=== PATIENT | male | born 1940 | race Caucasian/White ===

== ENCOUNTER → 2017-05-12 | Outpatient (CLI) | payer MEDICARE, OTHER ==
[~2017-05-12] MED LIST: ASPI-496 PO; FINA5TAB4 PO; METF500T4 PO; MULT-658 PO
[2017-05-12 10:02] LABS: MICROSCOPIC AUTO
== END | disposition home or self-care (01) ==
LOC: STAR 08:54
PROVIDERS: ATTEND Urology
DX: N20.0 Calculus of kidney (principal)
CPT/HCPCS: 81001; 87077; 87086; 87186; 93005

== ENCOUNTER 2017-05-18 09:45 | Day surgery (SDC) | payer MEDICARE, OTHER ==
[~2017-05-18] VITALS: Ht 177.8 cm; Wt 75.0 kg
[2017-05-18] MEDS ORDERED: LACTATED RINGERS 1,000 ML IV SCH (10:01)
[2017-05-18] MEDS ORDERED: CEFAZOLIN 1,000 MG ONE (13:36)
[2017-05-18] MEDS ORDERED: DEXAMETHASONE 4 MG/ML, 1ML ONE (13:36)
[2017-05-18] MEDS ORDERED: ONDANSETRON 2MG/ML, 2ML ONE (13:36)
[2017-05-18] MEDS ORDERED: PROPOFOL 10 MG/ML, 20ML ONE (13:36)
[2017-05-18] MEDS ORDERED: morphine SULFATE 10 MG/ML, 1ML IV PRN (16:00)
[2017-05-18] MEDS ORDERED: FENTANYL PF 100 MCG/2ML IV PRN (16:00)
[2017-05-18] MEDS ORDERED: HYDROmorphone 1 MG/ML, 1ML IV PRN (16:00)
[2017-05-18] MEDS ORDERED: OXYcodone 5 MG/5 ML ORAL.SOL UDC PO PRN (16:00)
[2017-05-18] MEDS ORDERED: ACETAMINOPHEN 325 MG TABLET PO PRN (16:00)
[2017-05-18] MEDS ORDERED: MEPERIDINE/PF 25MG/0.5ML IVPush PRN (16:00)
== END 2017-05-18 16:50 | disposition home or self-care (01) ==
LOC: OUT 09:45
PROVIDERS: ATTEND Urology
DX: N21.0 Calculus in bladder (principal); N20.0 Calculus of kidney; F17.210 Nicotine dependence, cigarettes, uncomplicated
CPT/HCPCS: 52317; 52353; 74018; 76001; 82360; 82962; 88300; J0690; J1100; J2405; J2704; J7120; J2710; J3490; C1758; C1769; C2617

== ENCOUNTER 2018-05-01 11:16 | Emergency (ER) | payer MEDICARE, OTHER ==
[~2018-05-01] VITALS: Ht 180.3 cm; Wt 75.0 kg
[~2018-05-01 11:16] MED LIST changes: +CEFD300C37 PO; +METF500T17 PO; -METF500T4 PO
--- NOTE | 2018-05-01 11:49 | NUR ---
PT TO ED FOR BRIGHT RED BLOODY URINE WITH SEDIMENT X2 DAYS. PT USES SELF CATHETER. DIAGNOSED WITH 2 KIDNEY STONES, LARGEST HAS BEEN "BLASTED". NO PAIN. NO GI OR CHANGES OTHER THAN STATED. CONNECTED TO MONITORS. VSS. AWAITING PA ASSESSMENT. CALL LIGHT WITHIN REACH. NO NEEDS AT THIS TIME.
[2018-05-01 11:58] VITALS: BP 117/68
[2018-05-01 12:29] LABS: BASOPHILS # (AUTO) 0.04 x10^3/uL (0-0.1); BASOPHILS % (AUTO) 0 % (0-1); EOSINOPHILS # (AUTO) 0.65 x10^3/uL (0-0.4); EOSINOPHILS % (AUTO) 5 % (1-7); LYMPHOCYTES # (AUTO) 2.08 x10^3/uL (1-3.4); LYMPHOCYTES % (AUTO) 17 % (22-44); MD NO; MEAN CORPUSCULAR HEMOGLOBIN 31.3 pg (27.5-34.5); MEAN CORPUSCULAR HGB CONC 32.8 g/dL (33.2-36.2); MEAN CORPUSCULAR VOLUME 95.5 fL (81-97); MEAN PLATELET VOLUME 8.1 fL (7.4-10.4); MONOCYTES % (AUTO) 7 % (2-9); NEUTROPHILS # (AUTO) 8.63 x10^3/uL (1.8-6.8); NEUTROPHILS % (AUTO) 71 % (42-75); PLATELET COUNT 297 x10^3/uL (130-400); RED BLOOD COUNT 4.96 x10^6/uL (4.38-5.82); RED CELL DISTRIBUTION WIDTH 14.5 % (9.4-14.8)
[2018-05-01 12:40] LABS: ALBUMIN 3.6 g/dL (3.4-5.0); ANION GAP 8 mmol/L (5-15); CALCIUM 9.2 mg/dL (8.5-10.1); CHLORIDE 107 mmol/L (98-107); CREATININE 1.05 mg/dL (0.7-1.3)
[2018-05-01 12:53] LABS: CULTURE INDICATED? YES; MICROSCOPIC INDICATED
--- NOTE | 2018-05-01 12:57 | NUR ---
us to bedside
== END 2018-05-01 14:16 | disposition home or self-care (01) ==
LOC: ED 13:31
DX: N30.01 Acute cystitis with hematuria (principal); E11.9 Type 2 diabetes mellitus without complications
CPT/HCPCS: 36415; 76770; 80048; 81001; 82040; 85025; 87077; 87086; 87186; 99284

== ENCOUNTER 2020-11-25 20:32 | Emergency (ER) | payer MEDICARE, OTHER ==
[~2020-11-25] VITALS: Ht 180.3 cm; Wt 73.0 kg
--- NOTE | 2020-11-25 21:17 | NUR ---
PT PRESENTS WITH C/O HIGH BLOOD SUGAR OF 454 AT HOME, STATES HE USED 40 UNITS OF LEVEMIR INSULIN.
[2020-11-25] MEDS ORDERED: EMPA25TA PO (21:21)
[2020-11-25] MEDS ORDERED: METF500T17 PO (21:21)
[2020-11-25] MEDS ORDERED: METH1TAB21 PO (21:21)
[2020-11-25] MEDS ORDERED: RIVA2.5T PO (21:21)
[2020-11-25] MEDS ORDERED: SERT-237 PO (21:21)
[2020-11-25 21:34] LABS: BASOPHILS % (AUTO) 1 % (0-1); EOSINOPHILS % (AUTO) 2 % (1-7); HCT (SEDRATE) 45.2 % (39.2-51.8); LYMPHOCYTES % (AUTO) 16 % (22-44); MEAN CORPUSCULAR HEMOGLOBIN 31.1 pg (27.5-34.5); MEAN CORPUSCULAR HGB CONC 33.2 g/dL (33.2-36.2); MEAN PLATELET VOLUME 8.3 fL (7.4-10.4); MONOCYTES % (AUTO) 7 % (2-9); NEUTROPHILS % (AUTO) 74 % (42-75); PLATELET COUNT 264 x10^3/uL (130-400); RED BLOOD COUNT 4.87 x10^6/uL (4.38-5.82); RED CELL DISTRIBUTION WIDTH 14.4 % (9.4-14.8)
[2020-11-25 21:42] LABS: ALBUMIN 3.2 g/dL (3.4-5.0); ANION GAP 9 mmol/L (5-15); C-REACTIVE PROTEIN, QUANT 0.82 mg/dL (0.02-0.49); CALCIUM 9.6 mg/dL (8.5-10.1); CHLORIDE 99 mmol/L (98-107); CREATININE 1.12 mg/dL (0.7-1.3)
[2020-11-25] MEDS ORDERED: INSULIN REGULAR 100 UNITS/ML, 3ML VIAL SQ-INSULIN ONE (22:30)
[2020-11-25] MEDS ORDERED: INSULIN SINGLE DOSE, ER ONE (22:37)
[2020-11-25] MEDS ORDERED: BACITRACIN ZINC OINT 500U/GM, 0.9 GM ONE (22:53)
[2020-11-25 22:58] VITALS: BP 121/58
== END 2020-11-25 23:18 | disposition home or self-care (01) ==
LOC: ED 21:53
DX: E11.65 Type 2 diabetes mellitus with hyperglycemia (principal)
CPT/HCPCS: 36415; 73590; 80048; 82040; 82962; 85025; 85651; 86140; 99284; J1815